=== PATIENT | male | born 1985 | race Caucasian/White ===

== ENCOUNTER 2016-05-08 08:23 | Emergency (ER) | payer SELFPAY ==
[~2016-05-08] VITALS: Ht 180.3 cm; Wt 89.8 kg
--- NOTE | 2016-05-08 08:23 | NUR ---
BROUGHT BACK TO BED #7 AND TRIAGED. REPORT GIVEN TO SAVAGE
[2016-05-08 08:24] VITALS: BP 145/94; PULSE 127; RESP 20; TEMP 97.9; O2SAT 98
--- NOTE | 2016-05-08 08:30 | NUR ---
DR MICHAEL AT BEDSIDE FOR EVALUATION
--- NOTE | 2016-05-08 08:35 | NUR ---
Pt AAOX4 c/o LLQ abd w/constipation and reduced appteite x 4-5 days. Pt reports h/o psych. Pt has only mild tenderness. Pt admits h/o asthma.
--- NOTE | 2016-05-08 08:40 | NUR ---
# 18 gauge angiocath placed to LFA. Use of asceptic technique. Opsite placed over site. Blood return noted. Blood for lab drawn from site. Flushed with 10 cc of normal saline. No evidence of infiltration noted. Patient tolerated well.
[2016-05-08] MEDS ORDERED: NACL 0.9% 1,000 ML IV ONE (08:44)
[2016-05-08] MEDS ORDERED: risperiDONE 1 MG TABLET (RisperDAL) PO ONE (08:45)
--- NOTE | 2016-05-08 08:48 | NUR ---
Patient transported to radiology via wheelchair, accompanied by rad staff.
[2016-05-08 09:06] LABS: BILIRUBIN,URINE 2+ (NEGATIVE); BLOOD, URINE 2+ (NEGATIVE); CLARITY/URINE CLEAR (CLEAR); COLOR,URINE YELLOW (YELLOW); GLUCOSE,URINE NEGATIVE (NEGATIVE); KETONES,URINE 3+ (NEGATIVE); LEUKOCYTE ESTERASE ,URINE NEGATIVE (NEGATIVE); NITRITE, URINE NEGATIVE (NEGATIVE); PROTEIN URINE 2+ (NEGATIVE); UROBILINOGEN,URINE 0.2 (0.2-1.0)
[2016-05-08 09:14] LABS: ANION GAP 14 (5-15); CALCIUM 9.9 mg/dL (8.4-11.0); CHLORIDE 101 mmol/L (98-107); GLUCOSE 95 mg/dL (70-99); POTASSIUM 3.9 mmol/L (3.5-5.1); SODIUM SERUM 138 mmol/L (136-145); UREA NITROGEN, BLOOD 9 mg/dL (8-21)
--- NOTE | 2016-05-08 09:15 | NUR ---
Pt tolerated medication well.Continuing to monitor.
[2016-05-08 09:16] LABS: GFR AFRICAN AMERICAN 99 mL/min (>90)
[2016-05-08 09:17] LABS: EOSINOPHILS # (AUTO) 0.1 K/uL (0.0-0.4); MONOCYTES # (AUTO) 1.1 K/uL (0.0-1.0)
[2016-05-08 09:18] LABS: ALANINE AMINOTRANSFERASE 43 U/L (12-78); ALBUMIN 4.5 g/dL (3.4-4.8); ASPARTATE AMINOTRANSFERASE 47 U/L (10-37); BASOPHILS # (AUTO) 0.1 K/uL (0.0-0.2); LIPASE 101 U/L (73-393); SALICYLATE 8 mg/dL (3-30); TOTAL BILIRUBIN 0.6 mg/dL (0.0-1.0); TOTAL PROTEIN, SERUM 8.9 g/dL (6.4-8.3)
[2016-05-08 09:19] LABS: BARBITURATE, URINE NEGATIVE (NEG <=200); BENZODIAZEPINE, URINE POSITIVE (NEG <=150); CANNABINOID, URINE POSITIVE (NEG <=50); COCAINE, URINE NEGATIVE (NEG <=150); METHAMPHETAMINES SCREEN,URINE NEGATIVE (NEG <=500); OPIATE, URINE NEGATIVE (NEG <=100); PHENCYCLIDINE SCREEN,URINE NEGATIVE (NEG <=25); UR TRICYCLIC ANTIDEPRESSANTS NEGATIVE (NEG <=300); URINE AMPHETAMINE NEGATIVE (NEG <=500); URINE METHADONE NEGATIVE (NEG <=200); URINE OXYCODONE SCREEN NEGATIVE (NEG <=100); URINE PROPOXYPHENE SCREEN NEGATIVE (NEG <=300)
[2016-05-08 09:20] LABS: ALCOHOL, BLOOD < 3 mg/dL (<10)
[2016-05-08 09:27] LABS: BASOPHILS % (AUTO) 0.9 % (0.0-2.0); HEMATOCRIT 51.3 % (36-54); HEMOGLOBIN 17.1 g/dL (14.0-18.0); LYMPHOCYTES # (AUTO) 2.4 K/uL (1.0-5.5); LYMPHOCYTES % (AUTO) 18.6 % (20.5-51.5); MEAN CORPUSCULAR HEMOGLOBIN 32 pg (27-31); MEAN CORPUSCULAR HGB CONC 33 % (32-36); MEAN CORPUSCULAR VOLUME 96 fL (79.0-98.0); MONOCYTES % (AUTO) 8.8 % (1.7-9.3); NEUTROPHILS % (AUTO) 70.7 % (40.0-70.0); PLATELET COUNT (AUTO) 212 K/uL (130-430); RED BLOOD CELL COUNT(AUTO) 5.34 MIL/uL (4.2-6.2); RED CELL DISTRIBUTION WIDTH 12.7 % (9.0-15.0); WHITE BLOOD COUNT (AUTO) 12.7 K/uL (4.8-10.8)
[2016-05-08 09:30] LABS: BACTERIA,URINE FEW /HPF (None Seen); MUCUS,URINE 1+ /LPF (None Seen); RBC,URINE 0-3 /HPF (0-3); WBC,URINE 0-3 /HPF (0-3)
[2016-05-08 09:31] LABS: ACETAMINOPHEN < 1 ug/mL (1-30)
--- NOTE | 2016-05-08 11:08 | NUR ---
Pt's abd pain resolved to tolerable level 05/05. Pt reports having h/o tachycardia
--- NOTE | 2016-05-08 11:17 | NUR ---
RETURNED FROM RADIOLOGY
[2016-05-08 11:50] VITALS: BP 174/88; PULSE 115; RESP 16; TEMP 98; O2SAT 97
--- NOTE | 2016-05-08 11:50 | NUR ---
Patient given written and verbal discharge instructions and verbalizes understanding. ER MD discussed with patient the results and treatment provided. Given copies of tests performed in ER. Patient in stable condition. ID arm band removed. IV catheter removed intact and dressing applied, no active bleeding. Rx of risperdal given. Patient educated on pain management and to follow up with PMD. Pain Scale 0. Opportunity for questions provided and answered.
== END 2016-05-08 11:50 | disposition home or self-care (01) ==
LOC: SED 08:23
DX: K59.00 Constipation, unspecified (principal); F20.9 Schizophrenia, unspecified; R03.0 Elevated blood-pressure reading, without diagnosis of hypertension; Z88.6 Allergy status to analgesic agent; Z88.8 Allergy status to other drugs, medicaments and biological substances; Z91.018 Allergy to other foods
CPT/HCPCS: 36415; 74020; 74176; 80053; 80307; 81000; 83690; 85025; 93005; 96360; 99285; G0480; G0481; G0482; J7030